=== PATIENT | female | born 1940 | race African-American/Black ===

== ENCOUNTER 2017-03-02 20:05 | Inpatient (IN) | payer MEDICARE, BC ==
[~2017-03-02] VITALS: Ht 167.6 cm; Wt 30.2 kg
[~2017-03-02 20:05] MED LIST: ACET325T33 PO; ASPI-535 PO; ATOR40TA68 PO; CARV12.579 PO; CELE200C PO; CHOL200035 PO; CLOP75TA27 PO; FERR-55 PO; FOLI1CAP PO; GABA100C14 PO; INSU100V18 SC; LISI-313 PO; PANT40SU2 PO
[2017-03-02 20:10] VITALS: Ht 167.6 cm; Wt 30.2 kg
[2017-03-02 20:45] LABS: EOSINOPHILS # 0.2 10^3/ul (0.0-0.5); EOSINOPHILS % 6.1 % (0.0-7.0); HEMATOCRIT 32.9 % (37.0-47.0); HEMOGLOBIN 10.7 g/dl (12.0-16.0); LYMPHOCYTES # 0.8 10^3/ul (0.8-2.9); LYMPHOCYTES % 25.8 % (15.0-51.0); MEAN CORPUSCULAR HEMOGLOBIN 31.1 pg (29.0-33.0); MEAN CORPUSCULAR HGB CONC 32.5 g/dl (32.0-37.0); MEAN CORPUSCULAR VOLUME 95.6 fl (82.0-101.0); MEAN PLATELET VOLUME 9.2 fl (7.4-10.4); MONOCYTE # 0.4 10^3/ul (0.3-0.9); MONOCYTES % 13.9 % (0.0-11.0); NEUTROPHILS % 53.2 % (39.0-77.0); PLATELET COUNT 246 10^3/UL (140-415); RED BLOOD COUNT 3.44 10^6/ul (4.20-5.40); RED CELL DISTRIBUTION WIDTH 14.1 % (11.5-14.5)
--- NOTE | 2017-03-02 20:45 | RADRPT ---
PROCEDURE: CT Brain without contrast. CLINICAL INDICATION: Concern for bleed. Altered mental status. TECHNIQUE: A CT of the brain was performed on multidetector high-resolution CT scanner utilizing a xial sections from the skull base through the vertex without contrast. The scan was reviewed in sof t tissue brain and high frequency resolution bone algorithm windows. Images were reviewed on a high -resolution PACS workstation. One or more the following does reduction techniques were utilized: Aut omated exposure control, adjustment of the mA/ or kV according to patient's size, or use of iterativ e reconstruction technique. The exam CTDI = 43.12 mGy and the DLP = 823.84 mGy-cm. COMPARISON: Brain CT 05/22/2015. FINDINGS: The ventricles and sulci are mildly prominent indicative of volume loss. There is no intracranial h emorrhage, mass effect or midline shift. No abnormal intra-axial or extra-axial fluid collections a re seen. The saldana/white matter differentiation is preserved. Old right parietal infarct as well as old right medial cerebellar infarct are noted. There are mild scattered foci of hypoattenuation in the white matter, which are nonspecific in etiol ogy but likely reflect chronic small vessel ischemic changes. There are mild intracranial vascular calcifications consistent with atherosclerosis. The visualized paranasal sinuses are essentially reji ar. IMPRESSION: 1. No acute intracranial hemorrhage, transcortical infarction or mass effect. 2. Mild intracranial atherosclerosis and chronic small vessel ischemic changes. 3. 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 4. Mild generalized cerebral volume loss. RPTAT: HFN .Sheri Macias MD, MD Date Time Electronically viewed and signed by .Sheri Macias MD, MD on 03/02/2017 20:44 .N/
[2017-03-02] MEDS ORDERED: DEXTROSE 50% 50 ML SYRINGE ONE ×2 (20:48→20:51)
--- NOTE | 2017-03-02 20:59 | ERA ---
ER Documentation Chief Complaint Date/Time DATE: 03/02/17 TIME: 20:56 Chief Complaint HPI 77-year-old woman brought in by EMS for altered mental status, she dialed her medical alert bracelet and upon arrival EMS found her blood sugar to be low. Mental status improved with IV dextrose and she was transported here. Her daughter who was later at the bedside states she may have eaten the less than she normally does today but there is been no recent changes in her insulin therapy. There may also be some confusion about exactly how much insulin she has to use nightly. She had no vomiting or diarrhea, no seizure activity, no fevers or chills. ROS All systems reviewed and are negative except as per history of present illness. Medications Home Meds Active Scripts Acetaminophen* (Tylenol*) 325 Mg Tablet, 2 TAB PO Q6 Y for PAIN AND OR ELEVATED TEMP, #20 TAB Prov:RAKEL RIVERA 05/21/16 Reported Medications Celecoxib* (Celebrex*) 200 Mg Capsule, 100 MG PO DAILY, CAP 03/13/15 Lisinopril* (Lisinopril*) 5 Mg Tablet, 5 MG PO DAILY, TAB 03/13/15 Insuln Asp Prt/Insulin Aspart (Novolog Mix 70-30 Vial*) 100 Units/Ml Vial, 6 UNIT SC QPM, VIAL 02/23/15 Insuln Asp Prt/Insulin Aspart (Novolog Mix 70-30 Vial*) 100 Units/Ml Vial, 10 UNIT SC QAM, VIAL 02/23/15 Folic Acid/Vitamin B Comp W-C (Nephrocaps Capsule) 1 Mg Capsule, 1 MG PO DAILY 02/23/15 Cholecalciferol (Vitamin D3) 2,000 Unit Capsule, 2000 UNIT PO DAILY 11/27/13 Gabapentin* (Gabapentin*) 100 Mg Capsule, 300 MG PO HS, CAP 11/27/13 Clopidogrel Bisulfate (Clopidogrel) 75 Mg Tablet, 75 MG PO DAILY, TAB 11/27/13 Atorvastatin* (Atorvastatin*) 40 Mg Tablet, 40 MG PO HS, TAB 11/27/13 Pantoprazole (Protonix) 40 Mg/Blist Pack Suspdr.pkt, 40 MG PO DAILY 08/16/13 Ferrous Sulfate* (Ferrous Sulfate*) 325 Mg Tablet, 325 MG PO BID 08/16/13 Carvedilol* (Carvedilol*) 12.5 Mg Tablet, 12.5 MG PO BID 08/16/13 Aspirin Ec (Aspir 81) 81 Mg Tablet.dr, 81 MG PO DAILY 08/16/13 Allergies Allergies: Coded Allergies: Cephalexin Monohydrate (Verified Allergy, Mild, 05/21/16) Penicillins (Verified Allergy, Mild, 05/21/16) acetaminophen (Verified Allergy, Mild, 05/21/16) hydrocodone bit (Verified Allergy, Mild, 05/21/16) latex (Verified Allergy, Mild, 06/19/15) erythromycin base (Verified Allergy, Unknown, 06/19/15) morphine (Verified Allergy, Unknown, 06/19/15) PMhx/Soc End-stage renal disease on hemodialysis, Hemodialysis Thursday, Thursday, Fridays , congestive heart failure, diabetes, hypertension, neuropathy, cardiomyopathy. History of Surgery: Yes (AV shunt, stent x 3, cardiac balloon x 2, back sx, cholesystectomy, hyster.) Anesthesia Reaction: Yes Hx Neurological Disorder: Yes (CVA?) Hx Respiratory Disorders: Yes (BRONCHITIS, PNEUMONIA) Hx Cardiac Disorders: Yes (htn, stent & balloon, possible KS?) Hx Psychiatric Problems: No Hx Miscellaneous Medical Probl: Yes (ESRD, IDDM, Dialysis) Hx Alcohol Use: No Hx Substance Use: No Hx Tobacco Use: No Smoking Status: Unknown if ever smoked FmHx Family History: diabetes Physical Exam Vitals Vital Signs Date Time Temp Pulse Resp B/P Pulse Ox O2 Delivery O2 Flow Rate FiO2 03/02/17 20:15 72 17 153/103 100 Room Air 03/02/17 20:10 98.4 72 17 153/103 100 Physical Exam GENERAL: Elderly, chronically debilitated woman, eyes closed, no apparent distress, afebrile, nontoxic in appearance HEENT: Moist mucous membranes, pink conjunctiva, no cervical spine tenderness or step-off deformities, no goiter, no jaundice or icterus, extraocular movements intact without pain. No submandibular induration, and no pharyngeal erythema NEURO: Nonverbal, pupils equal round reactive to light, no focal deficits or facial asymmetry CARDIAC: Regular rate and rhythm, no murmurs rubs or gallops LUNGS: Clear bilaterally no wheezing crackles or stridor ABDOMEN: Soft nontender, no guarding, no rigidity, no rebound, no psoas sign no obturator sign. SKIN: Warm and dry to touch, no abrasions, contusions, or hematomas, no lacerations, no ecchymosis, no target lesions, and without ulcers EXTREMITIES: No clubbing cyanosis or edema, calves are bilaterally symmetrical, no Homans sign, no popliteal cord sign. Distal pulses equal and bilateral PSYCH: Unable to assess Result Diagram: 03/02/17201903/02/172019 Results 24 hrs Laboratory Tests Test 03/02/17 20:09 03/02/17 20:20 03/02/17 20:47 03/02/17 20:57 Bedside Glucose 72mg/dL 32mg/dL 139mg/dL White Blood Count 3.010^3/ul Red Blood Count 3.4410^6/ul Hemoglobin 10.7g/dl Hematocrit 32.9% Mean Corpuscular Volume 95.6fl Mean Corpuscular Hemoglobin 31.1pg Mean Corpuscular Hemoglobin Concent 32.5g/dl Red Cell Distribution Width 14.1% Platelet Count 67532^3/UL Mean Platelet Volume 9.2fl Neutrophils % 53.2% Lymphocytes % 25.8% Monocytes % 13.9% Eosinophils % 6.1% Basophils % 1.0% Nucleated Red Blood Cells % 0.0/100WBC Neutrophils # (Manual) 1.610^3/ul Lymphocytes # 0.810^3/ul Monocytes # 0.410^3/ul Eosinophils # 0.210^3/ul Basophils # 0.010^3/ul Nucleated Red Blood Cells # 0.010^3/ul Sodium Level 140mmol/L Potassium Level 3.7mmol/L Chloride Level 99mmol/L Carbon Dioxide Level 28mmol/L Anion Gap 17 Blood Urea Nitrogen 31mg/dl Creatinine 3.98mg/dl Glucose Level 43mg/dl Calcium Level 10.1mg/dl Total Bilirubin 0.0mg/dl Direct Bilirubin 0.00mg/dl Indirect Bilirubin 0.0mg/dl Aspartate Amino Transf (AST/SGOT) 46IU/L Alanine Aminotransferase (ALT/SGPT) 33IU/L Alkaline Phosphatase 217IU/L Troponin I < 0.012ng/ml Total Protein 8.9g/dl Albumin 4.6g/dl Globulin 4.30g/dl Albumin/Globulin Ratio 1.06 Lipase 394U/L Test 03/02/17 21:07 03/02/17 21:54 Bedside Glucose 118mg/dL 99mg/dL Current Medications Medications (Trade) Dose Ordered Sig/Arvind Route PRN Reason Start Time Stop Time Status Last Admin Dose Admin Dextrose (D50w Syringe) 50 ml STK-MED ONCE .ROUTE 03/02/17 20:48 03/02/17 20:49 DC Dextrose 50 ml 50 ml STK-MED ONCE .ROUTE 03/02/17 20:51 03/02/17 20:52 DC Dextrose (D10w) 250 ml @ 125 mls/hr Q2H STAT IV 03/02/17 21:08 03/02/17 23:07 03/02/17 21:12 Procedures/MDM IV line was established patient was placed on compliance monitor rhythm strip revealed a sinus rhythm at about 70 bpm with upright P and T waves. Patient was afebrile. Initial blood sugar was 72 and normal. EKG was performed, read by me revealed a normal sinus rhythm at 69 bpm, normal axis, right ventricular conduction delay with a QRS duration of 100 ms, no concerning ST elevations or depressions noted. CT scan of the brain was performed that was negative for acute bleed mass or shift. One view chest x-ray performed, read by me there are no acute infiltrates, no pneumothorax, no end of the diaphragm. Stent noted in the heart. Upon return from radiology department patient was found to be hypoglycemic again with decreased mental status, she required dextrose 25 g IV 1 with improvement in mental status and blood sugar. Critical Care: Time: 37 minutes, this was time separate from other billable procedures. Treatments/Evaluations: Close monitoring and treatment of unstable vital signs, cardiorespiratory, and neurologic status, while maintaining tight balance of fluid, respiratory, and cardiac interventions. CBC reveals leukopenia 3, electrolytes reveal renal failure with a BUN/ creatinine of 31/4, blood sugar was low at 43 consistent with her initial presentation. Liver function tests are unremarkable, troponin was negative Patient's blood sugar fell again I placed her on a dextrose drip. Patient will be admitted to telemetry setting for continued medical management. Departure Diagnosis: Primary Impression: Acute encephalopathy Additional Impressions: Acute metabolic encephalopathy due to hypoglycemia End stage kidney disease Condition: NEWTON Rosas MD Mar 02, 2017 20:59
[2017-03-02 21:06] LABS: ALANINE AMINOTRANSFERASE 33 IU/L (13-69); ALBUMIN 4.6 g/dl (3.3-4.9); ALBUMIN/GLOBULIN RATIO 1.06; ALKALINE PHOSPHATASE 217 IU/L (42-121); ANION GAP 17 (8-16); ASPARTATE AMINO TRANSFERASE 46 IU/L (15-46); BLOOD UREA NITROGEN 31 mg/dl (7-20); CALCIUM 10.1 mg/dl (8.4-10.2); CARBON DIOXIDE 28 mmol/L (21-31); CHLORIDE 99 mmol/L (97-110); CREATININE 3.98 mg/dl (0.44-1.00); POTASSIUM 3.7 mmol/L (3.5-5.1); SODIUM 140 mmol/L (135-144); TOTAL PROTEIN 8.9 g/dl (6.1-8.1)
[2017-03-02 21:08] LABS: GLUCOSE 43 mg/dl (70-220)
[2017-03-02] MEDS ORDERED: DEXTROSE 10% 250 ML IV STA (21:08)
[2017-03-02 21:19] LABS: TROPONIN-I < 0.012 ng/ml (0.00-0.12)
--- NOTE | 2017-03-02 21:19 | RADRPT ---
PROCEDURE: Portable chest x-ray. CLINICAL INDICATION: 77 years of age, female. abdominal pain. Altered.. TECHNIQUE: Portable AP view of the chest. COMPARISON: June 12, 2015 FINDINGS: Borderline heart size. There is a left coronary artery stent. Tortuous aorta. Mediastinal contour s are otherwise normal. Lungs are clear. Negative for pleural effusion or pneumothorax. Bones are osteopenic. Advanced left glenohumeral osteoarthritis. Sclerosis of the left humeral head may be due to osteonecrosis or an old injury. IMPRESSION: Borderline heart size and left coronary artery stent. Negative for evidence of an acute chest proce ss. RPTAT: HCTS Physician Sayda Date Time Electronically viewed and signed by Physician Sayda on 03/02/2017 21:19 /
[2017-03-02] MEDS ORDERED: LORAZEPAM 2 MG INJ IV ONE (22:30)
[2017-03-02 23:06] VITALS: PULSE 74
[2017-03-02] MEDS ORDERED: ACETAMINOPHEN 325 MG TAB PO PRN (23:30)
[2017-03-02] MEDS ORDERED: LYRI25 PO (23:56)
[2017-03-03] VITALS (13 sets, daily range): BP systolic 131–145; BP diastolic 60–70; PULSE 65–78; RESP 18
[2017-03-03] MEDS: ACCU-CHEK XX SCH (02:00)
[2017-03-03] MEDS: PANTOPRAZOLE (EC) 40 MG TAB PO SCH (05:17)
[2017-03-03 07:49] LABS: BASOPHILS % 0.5 % (0.0-2.0); EOSINOPHILS # 0.2 10^3/ul (0.0-0.5); EOSINOPHILS % 3.7 % (0.0-7.0); HEMATOCRIT 30.9 % (37.0-47.0); HEMOGLOBIN 10.2 g/dl (12.0-16.0); LYMPHOCYTES # 0.8 10^3/ul (0.8-2.9); LYMPHOCYTES % 20.8 % (15.0-51.0); MEAN CORPUSCULAR HEMOGLOBIN 31.5 pg (29.0-33.0); MEAN CORPUSCULAR VOLUME 95.4 fl (82.0-101.0); MEAN PLATELET VOLUME 8.9 fl (7.4-10.4); MONOCYTE # 0.6 10^3/ul (0.3-0.9); MONOCYTES % 14.4 % (0.0-11.0); NEUTROPHILS % 60.4 % (39.0-77.0); PLATELET COUNT 231 10^3/UL (140-415); RED BLOOD COUNT 3.24 10^6/ul (4.20-5.40); RED CELL DISTRIBUTION WIDTH 13.5 % (11.5-14.5)
[2017-03-03] MEDS: INSULIN ASPART [NOVOLOG] 3 ML PEN SC SCH ×4 (07:55→21:33)
[2017-03-03 08:24] LABS: MAGNESIUM 2.1 mg/dl (1.7-2.5); PHOSPHORUS 5.1 mg/dl (2.5-4.9)
[2017-03-03 08:25] LABS: CALCIUM 10.2 mg/dl (8.4-10.2); CREATININE 4.41 mg/dl (0.44-1.00)
[2017-03-03] MEDS: CLOPIDOGREL 75 MG TAB PO SCH (09:24)
[2017-03-03] MEDS: ASPIRIN (EC) 81 MG TAB PO SCH (09:24)
[2017-03-03] MEDS: FERROUS SULFATE (EC) 325 MG TAB PO SCH ×2 (09:25→21:15)
[2017-03-03] MEDS: CHOLECALCIFEROL 2,000 UNIT CAP PO SCH (09:25)
[2017-03-03] MEDS: LISINOPRIL 5 MG TAB PO SCH (09:26)
--- NOTE | 2017-03-03 10:06 | HP ---
DATE OF ADMISSION: 03/02/2017 CHIEF COMPLAINT: Hypoglycemia, altered mental status. HISTORY OF PRESENT ILLNESS: This is a 77-year-old female with a past medical history of uterine cancer with recurrence, now with metastasis, history of end-stage renal disease, history of hypertension, history of diabetes, history of peripheral vascular disease, history of coronary artery disease, history of neuropathy, who presents to [facility] for altered mental status. The patient currently dialed her medical alert bracelet due to altered status. The patient was hypoglycemic in the field, with sugars of 38. Patient is given an amp of dextrose. In the emergency room, the patient had a CT scan of the brain, which showed no acute findings. The patient had a chest x-ray, which showed no acute process. The patient was given a liter D10, admitted to telemetry for evaluation. Upon my evaluation, patient at this time is currently stable. Denies any fevers, chills, nausea, or vomiting. PAST MEDICAL HISTORY: History of end-stage renal disease, history of metastatic uterine cancer, history of coronary disease, history of peripheral vascular disease, history of diabetes, history of hypertension, history of neuropathy. PAST SURGICAL HISTORY: Patient is status post AV shunt, status post cardiac balloon, status post cholecystectomy. FAMILY HISTORY: Noncontributory. SOCIAL HISTORY: Does not drink, smoke, or do drugs. MEDICATIONS: Reviewed and reconciled. REVIEW OF SYSTEMS: Fourteen review of systems conducted. Pertinent positives stated in HPI, otherwise negative. PHYSICAL EXAMINATION: VITAL SIGNS: Blood pressure is 134/63, respirations 18, pulse 78, temperature 98.0. HEENT: Head is normocephalic. NECK: Supple. HEART: Regular rate. LUNGS: Show diminished breath sounds at the base. ABDOMEN: Soft, nontender to palpation. No rebound or guarding. EXTREMITIES: Negative for clubbing, cyanosis. Trace edema. DERMATOLOGIC: Clean. No rashes. MUSCULOSKELETAL: No joint effusion. NEUROLOGIC: No focal deficits. DATA: Shows sodium 134, potassium 4.0, chloride 97, BUN 39, creatinine 4.41. White count 4.0, hemoglobin 10.2, crit 38.9, platelet count 231. ASSESSMENT AND PLAN: This is a 77-year-old female who presents with: 1. Hypoglycemia. Etiology is likely secondary to poor oral intake in conjunction with insulin. The patient's hypoglycemia has resolved. The patient is status post 1 L of D10. We will continue to monitor serial glucose levels. Monitor closely. 2. End-stage renal disease. The patient on dialysis Thursday, Thursday, Thursday. Plan for hemodialysis tomorrow. 3. Anemia. Monitor H and H levels. We will give Epogen as needed. 4. Mineral bone disorder. Continue to monitor calcium and phosphorus levels. 5. Hypertension. Continue current blood pressure regimen. 6. Coronary artery disease. Continue current medical management. 7. Peripheral vascular disease. Continue current medical management. 8. History of uterine cancer with recurrence. The patient is being followed at [facility]. 9. Anxiety disorder. [facility]. 10. Diabetic retinopathy. 11. Gastrointestinal and deep venous thrombosis prophylaxis. Continue proton pump inhibitor and sequential leg squeezes. Please note, I spent up to 25 minutes of [id number] time with the patient. The patient is a FULL CODE. Dictated By: Eriberto Galeano DO /[email or web address]/kylah /Document#: [id number]
[2017-03-03] MEDS: CELECOXIB 100 MG CAP PO SCH (14:52)
[2017-03-03] MEDS: VITAMIN B COMPLEX/VIT C CAP PO SCH (14:52)
[2017-03-03] MEDS: ATORVASTATIN 40 MG TAB PO SCH (21:15)
[2017-03-04] VITALS (20 sets, daily range): BP systolic 104–138; BP diastolic 50–78; PULSE 63–84; RESP 16–20
[2017-03-04] MEDS: ACCU-CHEK XX SCH (02:10)
[2017-03-04] MEDS: PANTOPRAZOLE (EC) 40 MG TAB PO SCH (06:03)
[2017-03-04 07:46] LABS: BASOPHILS % 0.7 % (0.0-2.0); EOSINOPHILS # 0.4 10^3/ul (0.0-0.5); EOSINOPHILS % 9.7 % (0.0-7.0); HEMATOCRIT 29.4 % (37.0-47.0); HEMOGLOBIN 9.7 g/dl (12.0-16.0); LYMPHOCYTES % 23.4 % (15.0-51.0); MEAN CORPUSCULAR HEMOGLOBIN 31.2 pg (29.0-33.0); MEAN CORPUSCULAR VOLUME 94.5 fl (82.0-101.0); MEAN PLATELET VOLUME 9.4 fl (7.4-10.4); MONOCYTE # 0.5 10^3/ul (0.3-0.9); MONOCYTES % 12.4 % (0.0-11.0); NEUTROPHILS % 53.6 % (39.0-77.0); PLATELET COUNT 236 10^3/UL (140-415); RED BLOOD COUNT 3.11 10^6/ul (4.20-5.40); RED CELL DISTRIBUTION WIDTH 13.7 % (11.5-14.5); WHITE BLOOD COUNT 4.1 10^3/ul (4.8-10.8)
[2017-03-04] MEDS: INSULIN ASPART [NOVOLOG] 3 ML PEN SC SCH ×4 (07:55→20:30)
[2017-03-04 08:24] LABS: CALCIUM 9.6 mg/dl (8.4-10.2); CREATININE 6.36 mg/dl (0.44-1.00); POTASSIUM 4.4 mmol/L (3.5-5.1)
--- NOTE | 2017-03-04 10:19 | DS ---
DATE OF ADMISSION: 03/02/2017 DATE OF DISCHARGE: 03/04/2017 HOSPITAL COURSE: This is a 77-year-old female with a past medical history of uterine cancer with recurrence, with metastasis, history of end-stage renal disease, history of hypertension, diabetes, peripheral vascular disease, coronary artery disease, who presented to [facility] with altered mental status. The patient apparently was noted to be hypoglycemic in the field with sugar of 38. Her medical alert bracelet was activated. The patient came to the emergency room, was given 1 L of D10 and admitted to telemetry. Overnight, the patient has been stable. Her hypoglycemic episodes have resolved. Please note, I spoke with the patient's daughter in detail. She informed me that she spoke with her primary critical care registered nurse, who was adjusted her insulin regimen and has halved all doses. The patient at this point, will be discharged home after hemodialysis today. She will follow up with her primary critical care registered nurse, as well as a primary care physician in 1 week's time. DISCHARGE CONDITION: At the time of discharge, the patient is stable. No acute distress. FINAL DIAGNOSES: 1. Hypoglycemia, resolved. 2. Acute encephalopathy. Etiology toxic metabolic, resolved. 3. End-stage renal disease. 4. Anemia. 5. Mineral bone disorder. 6. Hypertension. 7. Coronary artery disease. 8. Peripheral vascular disease. 9. History of uterine cancer. The patient to follow up with [facility]. 10. Anxiety disorder. 11. Diabetic retinopathy. 12. Gastrointestinal and deep venous thrombosis prophylaxis. DISCHARGE MEDICATIONS: Please see reconciliation list. Dictated By: Eriberto Galeano DO /[email or web address]/kylah /Document#: [id number]
[2017-03-04] MEDS: ASPIRIN (EC) 81 MG TAB PO SCH (11:02)
[2017-03-04] MEDS: FERROUS SULFATE (EC) 325 MG TAB PO SCH ×2 (11:02→20:29)
[2017-03-04] MEDS: LISINOPRIL 5 MG TAB PO SCH (11:02)
[2017-03-04] MEDS: VITAMIN B COMPLEX/VIT C CAP PO SCH (11:02)
[2017-03-04] MEDS: CELECOXIB 100 MG CAP PO SCH (11:02)
[2017-03-04] MEDS: CHOLECALCIFEROL 2,000 UNIT CAP PO SCH (11:02)
[2017-03-04] MEDS: CLOPIDOGREL 75 MG TAB PO SCH (11:03)
[2017-03-04] MEDS: ATORVASTATIN 40 MG TAB PO SCH (20:29)
== END 2017-03-04 20:52 | disposition home or self-care (01) | DRG 91 ==
LOC: E/R 20:05 → TEL 22:02
PROVIDERS: ADMIT Internal Medicine; ATTEND Internal Medicine
DX: G92 Toxic encephalopathy (principal); N18.6 End stage renal disease; I12.0 Hypertensive chronic kidney disease with stage 5 chronic kidney disease or end stage renal disease; C79.9 Secondary malignant neoplasm of unspecified site; E11.22 Type 2 diabetes mellitus with diabetic chronic kidney disease; E11.319 Type 2 diabetes mellitus with unspecified diabetic retinopathy without macular edema; Z85.42 Personal history of malignant neoplasm of other parts of uterus; I73.9 Peripheral vascular disease, unspecified
CPT/HCPCS: 36415; 70450; 71010; 80048; 80053; 82962; 83036; 83690; 83735; 84100; 84484; 85025; 90935; 93005; 96374; 97116; 97162; 97530; J1815; J2060

== ENCOUNTER 2018-01-03 17:03 | Emergency (ER) | END 2018-01-03 18:59 | disposition home or self-care (01) ==

== ENCOUNTER 2018-03-03 21:49 | Emergency (ER) | END 2018-03-04 00:24 | disposition home or self-care (01) ==

== ENCOUNTER 2018-03-15 11:04 | Inpatient (IN) | END 2018-03-31 20:57 | disposition home health service (06) | DRG 853 ==

== ENCOUNTER 2018-03-31 21:40 | Inpatient (IN) | END 2018-04-10 16:00 | disposition short-term general hospital (02) | DRG 939 ==

== ENCOUNTER 2018-04-10 16:59 | Inpatient (IN) | END 2018-04-20 00:05 | DRG 853 ==

== ENCOUNTER → 2018-05-05 | Day surgery (SDC) | END | disposition home or self-care (01) ==

== ENCOUNTER 2018-06-08 11:52 | Inpatient (IN) | END 2018-06-11 17:37 | disposition EXP | DRG 871 ==